=== PATIENT | female | born 1960 | race Caucasian/White ===

== ENCOUNTER 2021-12-09 14:36 | Emergency (ER) | payer OTHER ==
[~2021-12-09] VITALS: Ht 162.6 cm; Wt 79.5 kg
[2021-12-09 14:58] VITALS: BP 146/71
[2021-12-09 15:01] VITALS: BP 141/64
[2021-12-09 17:22] VITALS: BP 141/64
== END 2021-12-09 17:45 | disposition home or self-care (01) | DRG 563 ==
LOC: ED 14:36
DX: S92.352A Displaced fracture of fifth metatarsal bone, left foot, initial encounter for closed fracture (principal); F17.200 Nicotine dependence, unspecified, uncomplicated; W22.8XXA Striking against or struck by other objects, initial encounter